=== PATIENT | female | born 1955 | race Two or more races ===

== ENCOUNTER 2023-09-08 09:33 | Emergency (ER) | payer MEDICAID ==
[~2023-09-08] VITALS: Ht 149.9 cm; Wt 66.2 kg
[2023-09-08] MEDS ORDERED: MECLIZINE HCL 12.5 MG TABLET ONE (09:53)
[2023-09-08] MEDS: IV NS 0.9% 500 ML BAG IV ONE (10:02)
[2023-09-08] MEDS: MECLIZINE HCL 12.5 MG TABLET PO ONE (10:02)
[2023-09-08 10:10] LABS: BASOPHILS % (AUTO) 0.6 % (0.0-2.0); EOSINOPHILS # (AUTO) 0.1 K/uL (0.0-0.7); HEMATOCRIT 42 % (33-45); HEMOGLOBIN 14.4 g/dL (11.5-14.8); LYMPHOCYTES # (AUTO) 1.2 K/uL (0.8-4.8); LYMPHOCYTES % (AUTO) 23.9 % (20.0-44.0); MEAN CORPUSCULAR HEMOGLOBIN 32 PG (26.0-33.0); MEAN CORPUSCULAR HGB CONC 35 g/dl (31.0-36.0); MEAN CORPUSCULAR VOLUME 93 fL (82-100); MONOCYTES # (AUTO) 0.3 K/uL (0.1-1.30); MONOCYTES % (AUTO) 5.4 % (2.0-12.0); NEUTROPHILS # (AUTO) 3.5 K/uL (1.8-8.9); NEUTROPHILS % (AUTO) 69.1 % (43.0-81.0); PLATELET COUNT (AUTO) 233 K/uL (150-450); RED CELL DISTRIBUTION WIDTH 12.7 % (11.5-15.0); WHITE BLOOD COUNT (AUTO) 5.1 K/uL (4.3-11.0)
[2023-09-08 10:17] LABS: CALCIUM, SERUM 9.4 mg/dL (8.5-10.1); CARBON DIOXIDE 24 mmol/L (21-32); CHLORIDE 106 mmol/L (98-107); CREATININE 0.8 mg/dL (0.6-1.3); GLUCOSE 152 mg/dL (74-106); POTASSIUM 3.2 mmol/L (3.5-5.1); SODIUM SERUM 143 mmol/L (136-145); UREA NITROGEN, BLOOD 11 mg/dL (7-18)
[2023-09-08] MEDS ORDERED: MECL-159 PO (10:36)
[2023-09-08 10:52] VITALS: BP 154/80; TEMP 98; O2SAT 99
== END 2023-09-08 11:29 | disposition home or self-care (01) ==
LOC: ER 09:45
DX: H81.10 Benign paroxysmal vertigo, unspecified ear (principal); I10 Essential (primary) hypertension; R11.2 Nausea with vomiting, unspecified; R61 Generalized hyperhidrosis
CPT/HCPCS: 99284; 93005; 85025; 80048; 36415; 84484; J8597; J7040

== ENCOUNTER 2023-12-01 11:08 | Emergency (ER) | payer SELFPAY ==
[~2023-12-01] VITALS: Ht 152.4 cm; Wt 74.8 kg
[~2023-12-01 11:08] MED LIST: MECL-159 PO
[2023-12-01 11:34] VITALS: BP 169/88; TEMP 98; O2SAT 100
[2023-12-01] MEDS ORDERED: NEOM10DR11 EACH EAR (13:29)
[2023-12-01] MEDS ORDERED: AMOX-430 PO (13:29)
== END 2023-12-01 13:47 | disposition home or self-care (01) ==
LOC: ER 11:14
DX: H92.03 Otalgia, bilateral (principal); I10 Essential (primary) hypertension